=== PATIENT | male | born 1960 | race Caucasian/White ===

== ENCOUNTER 2017-08-04 14:05 | Outpatient (CLI) | payer OTHER ==
[2017-08-04] MEDS ORDERED: MIDAZOLAM 2 MG/2 ML VIAL ONE (14:24)
[2017-08-04] MEDS ORDERED: FLUMAZENIL 0.5 MG/5 ML MDV IVP ONE (14:24)
[2017-08-04] MEDS ORDERED: NALOXONE HCL 0.4 MG/ML INJ ONE (14:24)
[2017-08-04] MEDS ORDERED: fentaNYL 100 MCG/2 ML INJ ONE (14:24)
== END 2017-08-04 17:21 | disposition home or self-care (01) ==
LOC: FIMAGING 14:05
PROVIDERS: ATTEND Physician Assistant Medical
DX: M99.71 Connective tissue and disc stenosis of intervertebral foramina of cervical region (principal); G95.0 Syringomyelia and syringobulbia; Z98.1 Arthrodesis status
CPT/HCPCS: J2250; J2310; J3010

== ENCOUNTER → 2019-03-26 | Outpatient (CLI) | payer OTHER | LOC: FIMAGING 11:24 | PROVIDERS: ATTEND Internal Medicine | DX: R07.9 Chest pain, unspecified (principal); R05 Cough ==